=== PATIENT | female | born 1980 | race Caucasian/White ===

== ENCOUNTER → 2016-11-28 | Outpatient (CLI) | payer OTHER | LOC: BMCIMAGING 12:21 | PROVIDERS: ATTEND Podiatrist Foot & Ankle Surgery | DX: S92.331D Displaced fracture of third metatarsal bone, right foot, subsequent encounter for fracture with routine healing (principal); S92.351D Displaced fracture of fifth metatarsal bone, right foot, subsequent encounter for fracture with routine healing ==

== ENCOUNTER → 2016-12-21 | Outpatient (CLI) | payer OTHER | LOC: BMCIMAGING 12:21 | PROVIDERS: ATTEND Podiatrist Foot & Ankle Surgery | DX: S92.331D Displaced fracture of third metatarsal bone, right foot, subsequent encounter for fracture with routine healing (principal); S92.351D Displaced fracture of fifth metatarsal bone, right foot, subsequent encounter for fracture with routine healing ==

== ENCOUNTER 2016-12-29 05:15 | Emergency (ER) | payer OTHER ==
[2016-12-29 05:25] VITALS: RESP 18; TEMP 97.5
--- NOTE | 2016-12-29 05:33 | EDPHY ---
H & P Time Seen by Provider: 12/29/16 05:32 HPI/ROS: CC: "I am having severe cramping and a pulsating sensation in my pelvis." HPI: This 36-year-old female with no significant past medical history presents to the emergency department today complaining of a severe cramping and a pulsating sensation on the right side of her pelvis. She states it feels like it is her ovary and is radiating to her right upper quadrant and the suprapubic area. She had the pain 2 days ago in the afternoon and it was worse than it is tonight. She rated it at 8/10. It lasted about 5 hours and went away spontaneously. The pain came back last night at about 8:00 p.m. and calmed down enough that she was able to fall asleep at about 1:00 a.m. after taking ibuprofen. Then the pain woke her up. She rates it a 6/10 currently. The pain is worse when she draws her knees to her chest as in the position. It feels better when she stands up or lies flat on her back. She had no increase in the pain on the ride over to the ED. When she urinates she states it "feels heavy ". The pain also increased when she had a bowel movement. There has been no blood in her urine or her stool. She denies fever, chills, nausea, or vomiting. She has had no constipation or diarrhea. She has had a few prior episodes but Midol took the discomfort away. She has an IUD and is sexually active with her . She has been having an intermittent period over the last few days. She denies vaginal discharge. She had a physical exam about one and half months ago including a pelvic exam and everything was fine per her recollection. She has no history of sexually transmitted infections. She is by 6 years ago. REVIEW OF SYSTEMS: Constitutional: No fever, no chills. Eyes: No discharge. ENT: Recent sore throat/URI - resolved. Respiratory: No cough, no shortness of breath. Cardiac: No chest pain, no palpitations. Gastrointestinal: See HPI. Genitourinary: No hematuria. Musculoskeletal: No back pain. Skin: No rashes. Neurological: No headache. Past Medical/Surgical History: PMH: Denied. (Kidney stone but was taking a lot of supplements preparing for a marathon) PSH: FH: Father . Parkinson's. ETOH abuse; Mother alive at age 65 and in good health. NKDA MEDS: An occasional ibuprofen, Midol. Social History: She denies use of tobacco products; alcohol products once a week; no marijuana or drug use. She is and has a 6-year-old son. Smoking Status: Never smoked Physical Exam: General Appearance: Alert, moderate distress. Eyes: Pupils equal and round no pallor or injection. ENT, Mouth: Mucous membranes are moist. No pharyngeal erythema or exudates. Uvula midline. Respiratory: There are no retractions, lungs are clear to auscultation. Cardiovascular: Regular rate and rhythm. No murmurs, gallops or rubs. Back: No CVA tenderness to percussion. Gastrointestinal: Abdomen is soft, nondistended. Positive tenderness to palpation right lower quadrant (slightly lower than where appendix would be expected) and suprapubic area. No rebound, guarding or rigidity. Normal bowel sounds. Pelvic: deferred for now; (recent pelvic exam 1.5 months ago). Neurological: Awake and alert, sensory and motor exams grossly normal. Skin: Warm and dry, no rashes. Musculoskeletal: Neck is supple nontender. Extremities are symmetrical, full range of motion. No calf swelling or tenderness. Psychiatric: Patient is oriented X 3, there is no agitation. DIFFERENTIAL DIAGNOSIS: After history and physical exam differential diagnosis was considered for but not limited to: appendicitis, ovarian cyst, ovarian torsion, tubo-ovarian abscess, colitis, mesenteric adenitis Constitutional: Initial Vital Signs Temperature (C) 97.5 F 12/29/16 05:22 Heart Rate 79 12/29/16 05:22 Respiratory Rate 18 12/29/16 05:22 Blood Pressure 120/74 12/29/16 05:22 O2 Sat (%) 97 12/29/16 05:22 O2 Delivery Mode Room Air Allergies/Adverse Reactions: No Known Allergies Allergy (Verified 01/01/13 19:48) Home Medications: Medication Instructions Recorded NO HOME MEDS 01/01/13 Medical Decision Making Procedures: Pelvic exam: The vulva was normal no lesions. The vagina had a small amount of dark blood.. The cervix was closed with minimal active bleeding and no purulent drainage. IUD string apparent extruding from the cervical os. The uterus was normal size and nontender. The adnexa had no palpable masses but was tender to palpation. The exam was performed with a lead applier (Mendy). ED Course/Re-evaluation: The patient was seen and examined. Vital signs were reviewed and normal. After initially declining pain medication, the patient accepted Toradol 15 mg IV push. She may have evidence of slight dehydration by labs but declined IV fluids for now. A complete blood count was completely within normal limits. Her chemistry panel had a minimally low bicarb and a slightly elevated total bilirubin with normal transaminases. Her urinalysis revealed 2+ ketones and slight blood but she has been having her menstrual period. She is not . She had declined a pelvic exam initially but when we discussed if they saw the IUD string on her pelvic exam she did not remember and then questioned whether she actually had a pelvic exam. The patient will be kept NPO and is awaiting a pelvic ultrasound. Her care will be turned over to Dr. Jean-Pierre Franco for further evaluation and disposition. - Data Points Laboratory Results: Laboratory Results 12/29/16 05:28 12/29/16 05:28 12/29/16 12/29/16 12/29/16 05:30 05:28 05:28 WBC RBC Hgb Hct MCV MCH MCHC RDW Plt Count MPV Neut % (Auto) Lymph % (Auto) Early % (Auto) Eos % (Auto) Baso % (Auto) Nucleat RBC Rel Count Absolute Neuts (auto) Absolute Lymphs (auto) Absolute Monos (auto) Absolute Eos (auto) Absolute Basos (auto) Absolute Nucleated RBC Immature Gran % Immature Gran # Sodium 140 mEq/L mEq/L (134-144) Potassium 4.6 mEq/L mEq/L (3.5-5.2) Chloride 105 mEq/L mEq/L (97-110) Carbon Dioxide 21 mEq/l L mEq/l (22-31) Anion Gap 14 mEq/L mEq/L (8-16) BUN 22 mg/dL mg/dL (7-23) Creatinine 0.8 mg/dL mg/dL (0.6-1.0) Estimated GFR > 60 Glucose 68 mg/dL L mg/dL (70-100) Calcium 9.4 mg/dL mg/dL (8.5-10.4) Total Bilirubin 1.6 mg/dL H mg/dL (0.1-1.4) Conjugated Bilirubin 0.5 mg/dL mg/dL (0.0-0.5) Unconjugated Bilirubin 1.1 mg/dL mg/dL (0.0-1.1) AST 25 IU/L IU/L (14-46) ALT 31 IU/L IU/L (9-52) Alkaline Phosphatase 60 IU/L IU/L (38-126) Total Protein 7.0 g/dL g/dL (6.3-8.2) Albumin 4.4 g/dL g/dL (3.5-5.0) Beta HCG, Qual NEGATIVE Urine Color YELLOW Urine Appearance CLEAR Urine pH 5.5 (5.0-7.5) Ur Specific [place] >= 1.030 (1.002-1.030) Urine Protein NEGATIVE (NEGATIVE) Urine Ketones 1+ H (NEGATIVE) Urine Blood 2+ H (NEGATIVE) Urine Nitrate NEGATIVE (NEGATIVE) Urine Bilirubin NEGATIVE (NEGATIVE) Urine Urobilinogen 0.2 EU EU (0.2-1.0) Ur Leukocyte Esterase NEGATIVE (NEGATIVE) Urine RBC 0-1 /hpf /hpf (0-3) Urine WBC 0-1 /hpf /hpf (0-3) Ur Epithelial Cells 1+ /lpf /lpf (NONE-1+) Hyaline Casts 1-3 /lpf H /lpf (0-1) Urine Mucus 3+ /lpf H /lpf (NONE-1+) Urine Glucose NEGATIVE (NEGATIVE) 12/29/16 05:28 WBC 6.51 10^3/uL 10^3/uL (3.80-9.50) RBC 4.74 10^6/uL 10^6/uL (4.18-5.33) Hgb 14.9 g/dL g/dL (12.6-16.3) Hct 42.9 % % (38.0-47.0) MCV 90.5 fL fL (81.5-99.8) MCH 31.4 pg pg (27.9-34.1) MCHC 34.7 g/dL g/dL (32.4-36.7) RDW 12.0 % % (11.5-15.2) Plt Count 240 10^3/uL 10^3/uL (150-400) MPV 9.6 fL fL (8.7-11.7) Neut % (Auto) 50.1 % % (39.3-74.2) Lymph % (Auto) 39.5 % % (15.0-45.0) Early % (Auto) 6.3 % % (4.5-13.0) Eos % (Auto) 3.1 % % (0.6-7.6) Baso % (Auto) 0.8 % % (0.3-1.7) Nucleat RBC Rel Count 0.0 % % (0.0-0.2) Absolute Neuts (auto) 3.27 10^3/uL 10^3/uL (1.70-6.50) Absolute Lymphs (auto) 2.57 10^3/uL 10^3/uL (1.00-3.00) Absolute Monos (auto) 0.41 10^3/uL 10^3/uL (0.30-0.80) Absolute Eos (auto) 0.20 10^3/uL 10^3/uL (0.03-0.40) Absolute Basos (auto) 0.05 10^3/uL 10^3/uL (0.02-0.10) Absolute Nucleated RBC 0.00 10^3/uL 10^3/uL (0-0.01) Immature Gran % 0.2 % % (0.0-1.1) Immature Gran # 0.01 10^3/uL 10^3/uL (0.00-0.10) Sodium Potassium Chloride Carbon Dioxide Anion Gap BUN Creatinine Estimated GFR Glucose Calcium Total Bilirubin Conjugated Bilirubin Unconjugated Bilirubin AST ALT Alkaline Phosphatase Total Protein Albumin Beta HCG, Qual Urine Color Urine Appearance Urine pH Ur Specific [place] Urine Protein Urine Ketones Urine Blood Urine Nitrate Urine Bilirubin Urine Urobilinogen Ur Leukocyte Esterase Urine RBC Urine WBC Ur Epithelial Cells Hyaline Casts Urine Mucus Urine Glucose Medications Given: Discontinued Medications Ketorolac Tromethamine (Toradol) 15 mg IVP EDNOW ONE Stop: 12/29/16 06:09 Last Admin: 12/29/16 06:14 Dose: 15 mg Departure - Departure Clinical Impression: RLQ abdominal pain Referrals: Emma Cedeno PA [Physician Motor Equipment Sergeant] - As per Instructions
[2016-12-29 05:41] LABS: % IMMATURE GRANULYOCYTES 0.2 % (0.0-1.1); ABSOLUTE IMMATURE GRANULOCYTES 0.01 10^3/uL (0.00-0.10); ADD DIFF? NO; ADD MORPH? NO; ADD SCAN? NO; ATYPICAL LYMPHOCYTE FLAG 0 (0-99); FRAGMENT RBC FLAG 0 (0-99); HEMATOCRIT 42.9 % (38.0-47.0); HEMOGLOBIN 14.9 g/dL (12.6-16.3); LEFT SHIFT FLG 0 (0-99); LIPEMIA HEMOLYSIS FLAG 90 (0-99); MEAN CELL HEMOGLOBIN 31.4 pg (27.9-34.1); MEAN CELL HEMOGLOBIN CONCENTR. 34.7 g/dL (32.4-36.7); MEAN CELL VOLUME 90.5 fL (81.5-99.8); MEAN PLATELET VOLUME 9.6 fL (8.7-11.7); PLATELET CLUMPS FLAG 0 (0-99); PLATELET COUNT 240 10^3/uL (150-400); RED BLOOD CELL COUNT 4.74 10^6/uL (4.18-5.33)
[2016-12-29 05:43] LABS: COLOR YELLOW; LEUKOCYTE ESTERASE,URINE NEGATIVE (NEGATIVE); NITRITE,URINE NEGATIVE (NEGATIVE); PH,URINE 5.5 (5.0-7.5)
[2016-12-29 05:56] LABS: ALANINE AMINOTRANSFERASE 31 IU/L (9-52); ALBUMIN 4.4 g/dL (3.5-5.0); ALKALINE PHOSPHATASE 60 IU/L (38-126); ANION GAP 14 mEq/L (8-16); ASPARTATE AMINOTRANSFERASE 25 IU/L (14-46); BILIRUBIN,TOTAL 1.6 mg/dL (0.1-1.4); BILIRUBIN-CONJUGATED 0.5 mg/dL (0.0-0.5); BILIRUBIN-UNCONJUGATED 1.1 mg/dL (0.0-1.1); CALCIUM 9.4 mg/dL (8.5-10.4); CARBON DIOXIDE 21 mEq/l (22-31); CHLORIDE 105 mEq/L (97-110); CREATININE 0.8 mg/dL (0.6-1.0); GLOMERULAR FILTRATION RATE > 60; GLUCOSE 68 mg/dL (70-100); POTASSIUM 4.6 mEq/L (3.5-5.2); SODIUM 140 mEq/L (134-144)
[2016-12-29 05:57] LABS: MUCUS 3+ /lpf (NONE-1+)
[2016-12-29 05:59] LABS: RBC,URINE 0-1 /hpf (0-3); WBC,URINE 0-1 /hpf (0-3)
[2016-12-29] MEDS ORDERED: KETOROLAC 15 MG/1 ML SDV IVP ONE (06:08)
[2016-12-29 08:26] VITALS: PULSE 71
[2016-12-29] MEDS ORDERED: ONDANSETRON 4 MG/2 ML VIAL IVP ONE (08:26)
[2016-12-29] MEDS ORDERED: IOPAMIDOL (ISOVUE-300) 100 ML BTL ONE (08:41)
[2016-12-29 09:16] VITALS: BP 96/64; O2SAT 94
== END 2016-12-29 09:18 | disposition home or self-care (01) ==
LOC: CED 05:15
DX: R10.31 Right lower quadrant pain (principal)
CPT/HCPCS: 74177-PO; 76856-PO; 80048-PO; 80076-PO; 81003-PO; 81015-PO; 84703-PO; 85025-PO; 96374; J1885; J2405; Q9967

== ENCOUNTER 2016-12-29 19:52 | Emergency (ER) | payer OTHER ==
[2016-12-29 20:25] VITALS: O2SAT 96
[2016-12-29] MEDS ORDERED: NS 1,000 ML IV ONE (20:29)
[2016-12-29] MEDS ORDERED: METOCLOPRAMIDE 10 MG/2 ML VIAL IVP ONE (20:30)
[2016-12-29] MEDS ORDERED: HYOSCYAMINE SULFATE 0.125 MG TAB PO ONE (21:15)
[2016-12-29] MEDS ORDERED: KETOROLAC 15 MG/1 ML SDV IVP ONE (21:15)
[2016-12-29] MEDS ORDERED: PROMETHAZINE 25MG SUPP PREPK#4 BTL TAKEHOME ONE (22:30)
[2016-12-29] MEDS ORDERED: PROMETHAZINE 25 MG PREPACK #4 BTL TAKEHOME ONE (22:30)
--- NOTE | 2016-12-29 22:32 | EDPHY ---
H & P Time Seen by Provider: 12/29/16 20:29 HPI/ROS: This patient was evaluated early this morning with workup included a pelvic ultrasound and abdominal CT with IV contrast with findings of a small amount of free fluid likely from ruptured ovarian cyst. She was sent home with hydrocodone for analgesia and Zofran and reported vomiting 16 times today with inability to tolerate p.o. intake. She reports associated moderate lower belly pain and ongoing nausea. She started feeling slightly lightheaded this evening and came back for further treatment. She reports no improvement in her nausea vomiting with sublingual Zofran. Her test was negative this morning. ROS: No high fevers or chills. No other constitutional symptoms HEENT: No complaints Pulmonary: No shortness of breath. No cough. Cardiovascular: No chest pain. GI: No hematemesis. No diarrhea. : No urinary symptoms 10 point ROS is otherwise negative. Smoking Status: Never smoked Physical Exam: General Appearance: Alert, no distress. Eyes: Pupils equal and round no pallor or injection. ENT, Mouth: Mucous membranes moist. Respiratory: There are no retractions, lungs are clear to auscultation. Cardiovascular: Regular rate and rhythm. Gastrointestinal: Normoactive to hyperactive bowel sounds, soft, minimal lower belly tenderness right slightly more than left with no guarding or rebound. Back: No CVA tenderness. Neurological: GCS 15. Skin: Warm and dry, no rashes. Musculoskeletal: Neck is supple nontender. Extremities are symmetrical, full range of motion. Psychiatric: Mood and affect normal. DIFFERENTIAL DIAGNOSIS: After history and physical exam differential diagnosis was considered for vomiting, dehydration, ruptured ovarian cyst, doubt appendicitis, Constitutional: Initial Vital Signs Temperature (C) 36.4 C 12/29/16 20:22 Heart Rate 88 12/29/16 20:22 Respiratory Rate 20 12/29/16 20:22 Blood Pressure 118/74 12/29/16 20:22 O2 Sat (%) 96 12/29/16 20:22 O2 Delivery Mode Room Air Allergies/Adverse Reactions: No Known Allergies Allergy (Verified 12/29/16 20:32) Home Medications: Medication Instructions Recorded HYDROCODONE BIT/ACETAMINOPHEN 12/29/16 Zofran 12/29/16 MDM/Departure - MDM Diagnostics: IV 1 L normal saline bolus CBC is normal. test from this morning was normal. Urinalysis this morning negative. Electrolytes reveal a low bicarb the think is secondary to her vomiting and dehydration. Course: IV Reglan and Benadryl with resolution of nausea vomiting. She then tolerated a full bottle of Gatorade without emesis. Toradol 15 mg IV with relief of pain Patient ambulated without lightheadedness after treatment and reports feeling significantly improved. His suspect she had significant vomiting in part due to morphine she had for analgesia this morning. Her main problem tonight was dehydration improved with treatment. She has a benign belly exam tonight other than mild lower belly tenderness. I do not think she has acute appendicitis given current findings. Medications Given: Discontinued Medications Diphenhydramine HCl (Benadryl Injection) 25 mg IVP EDNOW ONE Stop: 12/29/16 20:31 Last Admin: 12/29/16 20:54 Dose: 25 mg Hyoscyamine Sulfate (Levsin, Hyomax-Sl) 0.125 mg PO EDNOW ONE Stop: 12/29/16 21:16 Last Admin: 12/29/16 21:31 Dose: 0.125 mg Sodium Chloride (Ns) 1,000 mls @ 0 mls/hr IV EDNOW ONE; Wide Open PRN Reason: Protocol Stop: 12/29/16 20:30 Last Admin: 12/29/16 20:54 Dose: 1,000 mls Ketorolac Tromethamine (Toradol) 15 mg IVP EDNOW ONE Stop: 12/29/16 21:16 Last Admin: 12/29/16 21:31 Dose: 15 mg Metoclopramide HCl (Reglan Injection) 10 mg IVP EDNOW ONE Stop: 12/29/16 20:31 Last Admin: 12/29/16 20:54 Dose: 10 mg Promethazine HCl (Phenergan 25 Mg Prepack #4) 1 btl TAKEHOME EDNOW ONE Stop: 12/29/16 22:31 Last Admin: 12/29/16 23:28 Dose: 1 btl Promethazine HCl (Phenergan 25mg Supp Prepack#4) 1 btl TAKEHOME EDNOW ONE Stop: 12/29/16 22:31 Last Admin: 12/29/16 23:27 Dose: 1 btl - Depart Disposition: Home, Routine, Self-Care Clinical Impression: Dehydration Abdominal pain Qualifiers: Abdominal location: lower abdomen, unspecified Qualified Code(s): R10.30 - Lower abdominal pain, unspecified Vomiting Qualifiers: Vomiting type: unspecified Vomiting Intractability: non-intractable Nausea presence: with nausea Qualified Code(s): R11.2 - Nausea with vomiting, unspecified Condition: Good Instructions: Promethazine (Into the rectum), Acute Nausea and Vomiting (ED), Acute Abdominal Pain (ED) Additional Instructions: Diagnoses: 1. Vomiting 2. Dehydration 3. Lower abdominal pain Plan: Drink plenty fluids Light diet Ibuprofen and Tylenol as needed for pain Phenergan suppository or pill-1/6 hours if needed for nausea vomiting No driving, alcohol or come Phenergan Follow up with your OBGYN physician for a recheck this week. Return emergency department for any significant worsening despite treatment plan. Referrals: NONE *PRIMARY CARE P,. [Primary Care Provider] - As per Instructions Leah Guerra MD [Medical Doctor] - As per Instructions
[2016-12-29 22:47] LABS: % IMMATURE GRANULYOCYTES 0.3 % (0.0-1.1); ABSOLUTE IMMATURE GRANULOCYTES 0.02 10^3/uL (0.00-0.10); ADD DIFF? NO; ADD MORPH? NO; ADD SCAN? NO; ATYPICAL LYMPHOCYTE FLAG 0 (0-99); FRAGMENT RBC FLAG 0 (0-99); HEMATOCRIT 40.1 % (38.0-47.0); HEMOGLOBIN 13.9 g/dL (12.6-16.3); LEFT SHIFT FLG 0 (0-99); LIPEMIA HEMOLYSIS FLAG 90 (0-99); MEAN CELL HEMOGLOBIN 31.2 pg (27.9-34.1); MEAN CELL HEMOGLOBIN CONCENTR. 34.7 g/dL (32.4-36.7); MEAN CELL VOLUME 90.1 fL (81.5-99.8); MEAN PLATELET VOLUME 9.4 fL (8.7-11.7); PLATELET CLUMPS FLAG 10 (0-99); PLATELET COUNT 247 10^3/uL (150-400); RED BLOOD CELL COUNT 4.45 10^6/uL (4.18-5.33); RED CELL DISTRIBUTION WIDTH 11.9 % (11.5-15.2)
[2016-12-29 22:57] LABS: ANION GAP 16 mEq/L (8-16); CALCIUM 8.4 mg/dL (8.5-10.4); CARBON DIOXIDE 15 mEq/l (22-31); CHLORIDE 107 mEq/L (97-110); CREATININE 0.8 mg/dL (0.6-1.0); GLOMERULAR FILTRATION RATE > 60; GLUCOSE 76 mg/dL (70-100); POTASSIUM 4.6 mEq/L (3.5-5.2); SODIUM 138 mEq/L (134-144)
[2016-12-29 23:15] VITALS: BP 130/61; PULSE 83; RESP 16; TEMP 98.6
== END 2016-12-29 23:34 | disposition home or self-care (01) ==
LOC: CED 19:52
DX: E86.0 Dehydration (principal); R10.30 Lower abdominal pain, unspecified; E86.9 Volume depletion, unspecified
CPT/HCPCS: 80048-PO; 85025-PO; 96374; J1200; J1885; J2765

== ENCOUNTER 2016-12-30 14:10 | Observation (INO) | payer OTHER ==
[2016-12-30] MEDS ORDERED: NS 1,000 ML IV ONE (14:42)
[2016-12-30 14:46] LABS: % IMMATURE GRANULYOCYTES 0.3 % (0.0-1.1); ABSOLUTE IMMATURE GRANULOCYTES 0.04 10^3/uL (0.00-0.10); ADD DIFF? NO; ADD MORPH? NO; ADD SCAN? NO; ATYPICAL LYMPHOCYTE FLAG 0 (0-99); FRAGMENT RBC FLAG 0 (0-99); HEMATOCRIT 42.9 % (38.0-47.0); HEMOGLOBIN 15.1 g/dL (12.6-16.3); LEFT SHIFT FLG 0 (0-99); LIPEMIA HEMOLYSIS FLAG 90 (0-99); MEAN CELL HEMOGLOBIN 31.5 pg (27.9-34.1); MEAN CELL HEMOGLOBIN CONCENTR. 35.2 g/dL (32.4-36.7); MEAN CELL VOLUME 89.6 fL (81.5-99.8); MEAN PLATELET VOLUME 9.3 fL (8.7-11.7); PLATELET CLUMPS FLAG 10 (0-99); PLATELET COUNT 249 10^3/uL (150-400); RED BLOOD CELL COUNT 4.79 10^6/uL (4.18-5.33)
[2016-12-30 14:54] LABS: ALANINE AMINOTRANSFERASE 33 IU/L (9-52); ALBUMIN 4.7 g/dL (3.5-5.0); ALKALINE PHOSPHATASE 63 IU/L (38-126); ANION GAP 18 mEq/L (8-16); ASPARTATE AMINOTRANSFERASE 26 IU/L (14-46); BILIRUBIN,TOTAL 2.2 mg/dL (0.1-1.4); BILIRUBIN-CONJUGATED 0.4 mg/dL (0.0-0.5); BILIRUBIN-UNCONJUGATED 1.8 mg/dL (0.0-1.1); CALCIUM 9.7 mg/dL (8.5-10.4); CARBON DIOXIDE 17 mEq/l (22-31); CHLORIDE 103 mEq/L (97-110); CREATININE 0.8 mg/dL (0.6-1.0); GLOMERULAR FILTRATION RATE > 60; GLUCOSE 104 mg/dL (70-100); POTASSIUM 4.5 mEq/L (3.5-5.2); SODIUM 138 mEq/L (134-144); TOTAL PROTEIN 7.5 g/dL (6.3-8.2)
--- NOTE | 2016-12-30 15:01 | EDPHY ---
H & P Stated Complaint: abd pain, vomiting x 3 days. 3rd ED visit for same. Time Seen by Provider: 12/30/16 14:48 HPI/ROS: CHIEF COMPLAINT: Abdominal pain, Nausea HISTORY OF PRESENT ILLNESS: The patient is a 36-year-old female, who returns today with continued suprapubic pain. The patient has been evaluated twice over the past 24 hours for the same complaint. She had a pelvic ultrasound and abdominal CT with findings of a small amount of free fluid likely from ruptured ovarian cyst. She was sent home with hydrocodone for analgesia and Zofran and reported vomiting 16 times. She returned to the ED and received IV Reglan and Benadryl with resolution of nausea and vomiting. The patient presents today with continued suprapubic pain. She states her pain is a 7/10 and worse with spasms. She reports pain in the right lower quadrant as well as the right epigastric region. She tried to take Promethazine pill, but vomited it up. She then tried it as a suppository, but found no relief. The patient continues to feel nauseous. She denies fever and diarrhea. Her last bowel movement was this morning. REVIEW OF SYSTEMS: A 10 point review of systems was performed and is negative with the exception of the elements mentioned in the history of present illness. Past Medical History: . Past Surgical History: section. Past Family History: Noncontributory Social History: Nonsmoker. No alcohol use. General Appearance: Alert, no acute distress. * Eyes: Pupils equal and round, no conjunctival injection, no discharge. ENT, Mouth: Mucous membranes are moist, no oropharyngeal erythema or edema. Neck: No lymphadenopathy, supple. Respiratory: Lungs are clear to auscultation; no wheezes, rales, or rhonchi. Cardiovascular: Regular rate and rhythm; no murmur, rub, or gallop. Gastrointestinal: Abdomen is soft, midline suprapubic tenderness, no masses or organomegaly, bowel sounds are diminished. Skin: Warm and dry, no rashes, normal color. Back: Nontender to palpation over the thoracolumbar spine. Extremities: No lower extremity edema, no calf tenderness or swelling. Neurological: Alert and oriented. Moving all four extremities easily and equally. Psychiatric: Normal affect. Source: Patient Exam Limitations: No limitations - Personal History LMP (Females 10-55): Now Current Tetanus/Diphtheria Vaccine: Yes Current Tetanus Diphtheria and Acellular Pertussis (TDAP): Yes - Medical/Surgical History Hx Asthma: No Hx Chronic Respiratory Disease: No Hx Diabetes: No Hx Cardiac Disease: No Hx Renal Disease: No Hx Cirrhosis: No Hx Alcoholism: No Hx HIV/AIDS: No Hx Splenectomy or Spleen Trauma: No Other PMH: ruptured ovarian cyst - Social History Smoking Status: Never smoked Constitutional: Initial Vital Signs Temperature (C) 36.8 C 12/30/16 14:16 Heart Rate 100 12/30/16 14:16 Respiratory Rate 16 12/30/16 14:16 Blood Pressure 111/68 12/30/16 14:16 O2 Sat (%) 97 12/30/16 14:16 O2 Delivery Mode Room Air Allergies/Adverse Reactions: morphine Allergy (Verified 12/30/16 14:15) Home Medications: Medication Instructions Recorded NK [No Known Home Meds] 12/30/16 Medical Decision Making - Diagnostics Imaging Results: Imaging Impressions Abdomen Ultrasound 12/30/16 15:32 Impression: Diffuse decreased echogenicity of the liver, which is nonspecific but can be seen with hepatitis. Otherwise, unremarkable right upper quadrant ultrasound. Results called and discussed with Brittanie Hernandez M.D., on December 30, 2016 at 1646. Imaging: Discussed imaging studies w/ manager call center Radiologist ED Course/Re-evaluation: The patient is a healthy female here for her third time with vomiting and abdominal pain. She was evaluated here twice with the same pain with associated nausea and vomiting. She had a pelvic US and abdominal CT that found free fluid in the pelvis suggestive of ruptured ovarian cyst. The patient continues to have severe suprapubic pain. On examination she has decreased bowel sounds and midline suprapubic tenderness. I do not suspect appendicitis at this time. I ordered an abdominal ultrasound to look at the gallbladder and a urinalysis. IV was established, the patient received 0.5mg Dilaudid and 12.5mg Phenergan. She is receiving IV fluids. The patient has an elevated WBC today. She also has a slightly elevated bilirubin. Her ultrasound today is negative. I discussed these findings with the patient. On repeat abdominal exam the patient has mild tenderness in the periumbilical region. The patient does not wish to go home, she fears her symptoms would be unmanageable at home. 5:00 p.m.: I spoke to Dr. Duque, hospitalist, she accepts the patient for admission. - Data Points Laboratory Results: Laboratory Results 12/30/16 14:30 12/30/16 14:30 12/30/16 12/30/16 12/30/16 14:30 14:30 14:30 WBC 11.57 10^3/uL H 10^3/uL (3.80-9.50) RBC 4.79 10^6/uL 10^6/uL (4.18-5.33) Hgb 15.1 g/dL g/dL (12.6-16.3) Hct 42.9 % % (38.0-47.0) MCV 89.6 fL fL (81.5-99.8) MCH 31.5 pg pg (27.9-34.1) MCHC 35.2 g/dL g/dL (32.4-36.7) RDW 12.0 % % (11.5-15.2) Plt Count 249 10^3/uL 10^3/uL (150-400) MPV 9.3 fL fL (8.7-11.7) Neut % (Auto) 85.9 % H % (39.3-74.2) Lymph % (Auto) 9.6 % L % (15.0-45.0) [place] % (Auto) 4.0 % L % (4.5-13.0) Eos % (Auto) 0.0 % L % (0.6-7.6) Baso % (Auto) 0.2 % L % (0.3-1.7) Nucleat RBC Rel Count 0.0 % % (0.0-0.2) Absolute Neuts (auto) 9.94 10^3/uL H 10^3/uL (1.70-6.50) Absolute Lymphs (auto) 1.11 10^3/uL 10^3/uL (1.00-3.00) Absolute Monos (auto) 0.46 10^3/uL 10^3/uL (0.30-0.80) Absolute Eos (auto) 0.00 10^3/uL L 10^3/uL (0.03-0.40) Absolute Basos (auto) 0.02 10^3/uL 10^3/uL (0.02-0.10) Absolute Nucleated RBC 0.00 10^3/uL 10^3/uL (0-0.01) Immature Gran % 0.3 % % (0.0-1.1) Immature Gran # 0.04 10^3/uL 10^3/uL (0.00-0.10) Sodium 138 mEq/L mEq/L (134-144) Potassium 4.5 mEq/L mEq/L (3.5-5.2) Chloride 103 mEq/L mEq/L (97-110) Carbon Dioxide 17 mEq/l L mEq/l (22-31) Anion Gap 18 mEq/L H mEq/L (8-16) BUN 17 mg/dL mg/dL (7-23) Creatinine 0.8 mg/dL mg/dL (0.6-1.0) Estimated GFR > 60 Glucose 104 mg/dL H mg/dL (70-100) Calcium 9.7 mg/dL D mg/dL (8.5-10.4) Total Bilirubin 2.2 mg/dL H mg/dL (0.1-1.4) Conjugated Bilirubin 0.4 mg/dL mg/dL (0.0-0.5) Unconjugated Bilirubin 1.8 mg/dL H mg/dL (0.0-1.1) AST 26 IU/L IU/L (14-46) ALT 33 IU/L IU/L (9-52) Alkaline Phosphatase 63 IU/L IU/L (38-126) Total Protein 7.5 g/dL g/dL (6.3-8.2) Albumin 4.7 g/dL g/dL (3.5-5.0) Lipase 132 IU/L IU/L (23-300) Beta HCG, Qual NEGATIVE Medications Given: Discontinued Medications Hydromorphone HCl (Dilaudid) 0.5 mg IVP EDNOW ONE Stop: 12/30/16 15:16 Last Admin: 12/30/16 15:33 Dose: 0.5 mg Sodium Chloride (Ns) 1,000 mls @ 0 mls/hr IV ONCE ONE; Wide Open PRN Reason: Protocol Stop: 12/30/16 14:43 Last Admin: 12/30/16 14:49 Dose: 1,000 mls Promethazine HCl (Phenergan) 12.5 mg IVP EDNOW ONE Stop: 12/30/16 15:16 Last Admin: 12/30/16 15:32 Dose: 12.5 mg Departure - Departure Disposition: [facility] Inpatient Acute Clinical Impression: Vomiting Qualifiers: Vomiting type: unspecified Vomiting Intractability: intractable Nausea presence : with nausea Qualified Code(s): R11.2 - Nausea with vomiting, unspecified Abdominal pain Qualifiers: Abdominal location: generalized Qualified Code(s): R10.84 - Generalized abdominal pain Condition: Fair Report Scribed for: Brittanie Hernandez Report Scribed by: Luisa Garvey Date of Report: 12/30/16 Time of Report: 15:01 Physician Review and Approval Statement: 12/30/16 15:01 Portions of this note were transcribed by the medical anthropologist. I, Dr. Brittanie Hernandez, personally performed the history, physical exam, and medical decision- making; and confirmed the accuracy of the information in the transcribed note.
[2016-12-30] MEDS ORDERED: PROMETHAZINE HCL 25 MG/ML INJ IVP ONE (15:15)
[2016-12-30] MEDS ORDERED: HYDROmorphONE/DILAUDID 1 MG/ML INJ IVP ONE (15:15)
[2016-12-30] MEDS ORDERED: oxyCODONE IR 5 MG TAB PO PRN (18:34)
[2016-12-30] MEDS ORDERED: HYDROmorphONE/DILAUDID 1 MG/ML INJ IVP PRN (18:34)
[2016-12-30] MEDS ORDERED: ONDANSETRON 4 MG/2 ML VIAL IVP PRN (18:34)
[2016-12-30] MEDS ORDERED: PROMETHAZINE HCL 25 MG/ML INJ IVP PRN (18:34)
[2016-12-30] MEDS ORDERED: ACETAMINOPHEN 325 MG TAB PO PRN (18:34)
--- NOTE | 2016-12-30 19:16 | GHP ---
[f rep st] HISTORY AND PHYSICAL DATE OF ADMISSION: 12/30/2016 CHIEF COMPLAINT: Abdominal pain. HISTORY OF PRESENT ILLNESS: The patient is a 36-year-old female, who initially started with severe s uprapubic pain 2 nights ago. She came to the ER and was found to have some free fluid in her abdomen , was diagnosed with a ruptured ovarian cyst, and discharged home with hydrocodone and Zofran and sup portive care. She has gone home and has had persistent profuse vomiting, unable to keep anything marianne n, has now come back to the ER 2 times due to uncontrolled symptoms, and is now being admitted to [facility]. Today, the pain did move upwards a little bit to her epigastric region. She has known rig ht lower quadrant pain that comes on monthly with her cycle, and there was some concern by her gyneco logist that she could have endometriosis and they placed an IUD. PAST MEDICAL HISTORY: Possible endometriosis. PAST SURGICAL HISTORY: . MEDICATIONS: Please see computer record for full detailed list. ALLERGIES: Morphine. SOCIAL HISTORY: No smoking. Occasional alcohol. She lives with her and child. REVIEW OF SYSTEMS: A complete review of systems obtained. Review of systems negative regarding cons titutional, HEENT, GI, pulmonary, cardiovascular, , hematology, skin, muscular, endocrine, psych, e xcept for positives and negatives as noted in HPI. FAMILY HISTORY: Reviewed and noncontributory to presenting complaint. PHYSICAL EXAMINATION: GENERAL: Well-developed, well-nourished female, in no distress. VITAL SIGNS: Temperature is 370, pulse 69, blood pressure 90/56, saturating 95% on room air. EYES: Normal conj unctivae. Pupils equal, react to light. ENT: Normal ears and nose. Hearing intact. Normal teeth. Oropharynx moist. NECK: Trachea midline. No thyromegaly. CHEST: Normal respiratory effort. RAMSES NGS: Clear to auscultation bilaterally. CARDIOVASCULAR: Regular rate and rhythm. No murmur. No l ower extremity edema. ABDOMEN: Soft. Positive tenderness to palpation without rebound or guarding, in the suprapubic area the worst. No hepatosplenomegaly. SKIN: Warm and dry without rash. MUSCUL OSKELETAL: No cyanosis or clubbing. Strength is 5/5 upper and lower extremities. NEUROLOGIC: Cran ial nerves intact. Normal sensation to light touch. PSYCHIATRIC: Alert and oriented x3. Normal af fect. Normal judgment and insight. Normal memory. LABORATORY DATA: White count 11.56, hematocrit 42.9, platelets 249. Sodium 138, potassium 4.5, chlo ride 103, bicarb 17, BUN 17, creatinine 0.8, glucose 104, total bilirubin is 1.2, unconjugated biliru bin 1.8. LFTs are otherwise negative. Lipase is negative. Beta HCG is negative. Abdominal ultraso und shows a question of hepatitis, but gallbladder okay. ASSESSMENT/PLAN: 1. Suprapubic pain. She was previously found to have free fluid in her abdomen concerning for a rup tured ovarian cyst versus endometriosis. I spoke with Dr. Guerra, of [facility] [facility] [employer] [facility], and she will see her in co nsultation. The appendix is not visualized on her CAT scan well, but per Radiology if it were inflam ed, they would at least see some enlargement, which is not currently present. We will continue to fo llow her abdominal exam serially. 2. Nausea and vomiting. She will be treated supportively with p.r.n. Zofran and Phenergan. 3. Increased liver function tests and question hepatitis by ultrasound. Her liver function test corina vation is all unconjugated, which I would not think would be hepatic in origin. We will check a julian l hepatitis panel, however, and follow liver function tests. I believe this finding on ultrasound charline preston just be nonspecific. 4. Code status: Full. 5. Admission status: We will admit to Observation. Clinical improvement will determine what treatm ent is needed. 6. Deep venous thrombosis prophylaxis. She is low risk. We will hold off on pharmacologic prophyla xis at this time. /[id number]/MODL
[2016-12-30] MEDS: KETOROLAC 30 MG/1 ML SDV IVP PRN (20:59)
[2016-12-30] MEDS: NS 1,000 ML IV SCH (20:59)
--- NOTE | 2016-12-31 01:07 | GCON ---
[f rep st] CONSULTATION SCHOOL CUSTODIAN CONSULT NOTE DATE OF CONSULTATION: 12/30/2016 SERVICE: Gynecology. HISTORY: The patient is a 36-year-old para 1 white female, who was admitted to the hospitalist service for persistent low abdominal pain with recent nausea and vomiting and upper abdominal pain. The patient has been seen in the emergency room now for the 3rd time and it was determined to be admitted for further observation. The patient had onset of sharp, lower midline pelvic pain acutely, beginning in the evening on 12/27. This was also extending up the right abdominal area. The pain lasted approximately 5 hours and then resolved. The patient had no pain throughout 12/28 until late in the day. The pain returned and was intense through the night and the patient presented to the emergency room early on 12/29. The pain was similar but significantly more intense than previous dysmenorrhea and mittelschmerz that the patient has had in the past. This also coincides with the most recent menstrual period which started on 12/25. After the patient was seen in the emergency room and given narcotics, she was discharged home, but proceeded to have significant nausea and vomiting throughout the day on 12/29 and was seen later in the emergency room with pain returning. Again was given narcotics and Toradol and hydrated with IV fluids. She was discharged home. However, reports continued nausea and vomiting throughout the day on 12/30. The patient reports the pain is lessening in her pelvis. However, on 12/30 was having more mid upper abdominal pain. The patient was not experiencing any diarrhea. Her vaginal bleeding this week has been a bit more than the typical menses with her Mirena IUD. There was heavier brownish flow on 12/26 but since then flow has been tapering and only spotting. Upon evaluation in the emergency room this afternoon, the patient was given Dilaudid and had improvement of pain, and the nausea was lessened with Phenergan IV. PAST MEDICAL HISTORY: Negative. The patient denies GI disorders and no recent exposures to viral illnesses. The patient has no cardiac or respiratory problems. PAST SURGICAL HISTORY: section 6 years ago. PAST OBSTETRIC HISTORY: Term del with C/S. PAST SCHOOL CUSTODIAN HISTORY: The patient in the past had [id number] dysmenorrhea and mittelschmerz. She had placement of a Mirena IUD 2 years ago in hopes of improving the pain. She did have a marked reduction in her symptoms until approximately 2-3 months ago when the discomfort started returning at midcycle and with the menstrual flow. Currently does not have bleeding every month and usual menses are only spotting. The patient is receiving SCHOOL CUSTODIAN care from Dr. Alexandra Bajwa, who felt the patient potentially had endometriosis with her previous history of pain, although the patient has never had any specific evaluation with laparoscopy. SOCIAL HISTORY: Patient is , lives with her and son. Is a nonsmoker. No alcohol or drug use. The patient is in a monogamous relationship. No history of sexually transmitted infections. LAB/RADIOLOGY: The patient has had multiple studies over the last 2 days including a CAT scan that was essentially negative for any pelvic pathology. There was no definitive view of the appendix, however, there was no evidence that would suggest an appendicitis. Pelvic ultrasound revealed a normal uterus 8 x 5 x 4 cm with an endometrial thickness 0.6 cm. The IUD was felt to be in position. Bilaterally the ovaries appeared normal with normal vascular flow. There was trace pelvic fluid. Lab studies revealed slightly elevated WBCs at 11.5, otherwise negative with normal liver functions and only minimally elevated bilirubin with normal lipase. PHYSICAL EXAMINATION: GENERAL: The patient is a well-developed, well- nourished white female in minimal discomfort at the time of my consultation at approximately 8:30 p.m. VITAL SIGNS: Normal and the patient is afebrile. See nursing documentation for full details. The exam was limited to abdominal exam with mild epigastric and upper abdominal soreness. Minimal lower quadrant soreness. No symphysis pubis pain. Pelvic exam was not performed as it was not felt this would add definition to the patient's problem. REVIEW OF SYSTEMS: 10-point Review of Systems performed with pertinent positives and negatives noted above. The patient has no symptoms of dysuria, urgency, or hesitation with voiding. The patient has no vaginal discharge other than the spotting menstrual flow at this point. She has not had symptoms of vaginal itching or burning or odor. ASSESSMENT: Right lower quadrant pain diminishing today. Nausea and vomiting after narcotics in the emergency room. Dysmenorrhea and mittelschmerz historically. With reviewing the patient's symptoms, it appears that her current discomfort is consistent with dysmenorrhea that definitely seems more exaggerated than typical which coincides with increased flow this week. I feel the patient's upper abdominal pain now sounds most consistent with abdominal wall soreness from persistent nausea and vomiting yesterday and today. There is a low possibility the patient has a concurrent gastrointestinal virus causing the symptoms in addition to her dysmenorrhea. PLAN: I recommend the patient having Toradol through the night and trying to minimize narcotic use. The hospitalist has ordered additional labs for in the morning. If the patient's pain has improved, then I feel there are options for her to potentially mitigate dysmenorrhea in the future. She has the option of Depo-Provera, resuming Nuvaring that she used in the past for conservative management or wait and see what further cycles present. The patient will follow up with Dr. Bajwa for continued management and to proceed with a laparoscopy to evaluate for endometriosis if necessary. Dr. Ring will follow up with the patient tomorrow. /[id number]/MODL MTDD
[2016-12-31] MEDS: KETOROLAC 30 MG/1 ML SDV IVP PRN ×2 (03:22→11:02)
[2016-12-31 05:47] LABS: % IMMATURE GRANULYOCYTES 0.4 % (0.0-1.1); ABSOLUTE IMMATURE GRANULOCYTES 0.03 10^3/uL (0.00-0.10); ADD DIFF? NO; ADD MORPH? NO; ADD SCAN? NO; ATYPICAL LYMPHOCYTE FLAG 0 (0-99); FRAGMENT RBC FLAG 10 (0-99); HEMATOCRIT 34.4 % (38.0-47.0); HEMOGLOBIN 12.1 g/dL (12.6-16.3); LEFT SHIFT FLG 0 (0-99); LIPEMIA HEMOLYSIS FLAG 90 (0-99); MEAN CELL HEMOGLOBIN CONCENTR. 35.2 g/dL (32.4-36.7); MEAN PLATELET VOLUME 9.7 fL (8.7-11.7); PLATELET CLUMPS FLAG 0 (0-99); PLATELET COUNT 199 10^3/uL (150-400); RED BLOOD CELL COUNT 3.78 10^6/uL (4.18-5.33); RED CELL DISTRIBUTION WIDTH 12.2 % (11.5-15.2)
[2016-12-31] MEDS: NS 1,000 ML IV SCH (06:06)
[2016-12-31 06:07] LABS: ALANINE AMINOTRANSFERASE 26 IU/L (9-52); ALBUMIN 2.9 g/dL (3.5-5.0); ALKALINE PHOSPHATASE 41 IU/L (38-126); ANION GAP 7 mEq/L (8-16); ASPARTATE AMINOTRANSFERASE 15 IU/L (14-46); BILIRUBIN-CONJUGATED 0.2 mg/dL (0.0-0.5); BILIRUBIN-UNCONJUGATED 1.8 mg/dL (0.0-1.1); CALCIUM 8.6 mg/dL (8.5-10.4); CARBON DIOXIDE 21 mEq/l (22-31); CHLORIDE 108 mEq/L (97-110); CREATININE 0.8 mg/dL (0.6-1.0); GLOMERULAR FILTRATION RATE > 60; GLUCOSE 81 mg/dL (70-100); SODIUM 136 mEq/L (134-144); TOTAL PROTEIN 5.3 g/dL (6.3-8.2)
[2016-12-31 08:37] VITALS: BP 109/65; PULSE 71; RESP 12; TEMP 97.9; O2SAT 96
--- NOTE | 2016-12-31 08:43 | HOSPPROG ---
Hospitalist Progress Note Assessment/Plan: Patient is a 36 y/o female who presented to the ER with abdominal pain. Today is my 1st encounter with the patient. Chart reviewed. * abdominal pain, suprapubic pain It was noted on her ultrasound that she had some free fluid concerning for ruptured ovarian cyst versus endometriosis Appreciate Dr. Guerra seeing the patient. Recommendation is for anti-inflammatories Likely etiology of her pain is dysmenorrhea She will follow up with Dr. Bajwa and proceed with a laparoscopy to evaluate for endometriosis * nausea and vomiting Resolved * increased liver function test/increased bilirubin Viral hepatitis labs pending * plan. Dr. Ring to see the patient today. Will plan on discharging she can eat and drink Subjective: Josselyn is feeling better today/ eating and drinking. Objective: Vital Signs Temp Pulse Resp BP Pulse Ox 36.6 C 71 12 109/65 96 12/31/16 08:00 12/31/16 08:00 12/31/16 08:00 12/31/16 08:00 12/31/16 08:00 Laboratory Results 12/31/16 05:11 12/31/16 05:11 12/30/16 12/31/16 01/01/17 05:59 05:59 05:59 Intake Total 1132 Balance 1132 - Physical Exam Constitutional: no apparent distress, appears nourished, not in pain Eyes: PERRL Ears, Nose, Mouth, Throat: hearing normal Cardiovascular: regular rate and rhythym Respiratory: no respiratory distress Gastrointestinal: normoactive bowel sounds, soft, non-tender abdomen Skin: warm, normal color Musculoskeletal: full muscle strength Neurologic: AAOx3 Psychiatric: interacting appropriately, not anxious ICD10 Worksheet Patient Problems: Problems Problem Status Onset Abdominal pain Acute Vomiting Acute Dehydration Acute
[2016-12-31 09:23] LABS: COLOR YELLOW; LEUKOCYTE ESTERASE,URINE NEGATIVE (NEGATIVE); NITRITE,URINE NEGATIVE (NEGATIVE)
[2016-12-31 09:32] LABS: BACTERIA TRACE /hpf (NONE SEEN); MUCUS 1+ /lpf (NONE-1+)
--- NOTE | 2016-12-31 11:15 | SOAPPROG ---
SOAP Progress Note Assessment/Plan: Assessment: abdominal/pelvic pain - resolved Plan: follow up with [facility] or [facility] pelvic ultrasound as outpatient discharge per admitting physician 12/31/16 11:12 Subjective: patient is doing much better. had several episodes of vomiting last night. not sure if vomiting secondary to pain or if pain was gi related. tolerating diet. voiding without difficulty. ready to go home. hydrating well. Objective: Vital Signs Temp Pulse Resp BP Pulse Ox 36.6 C 71 12 109/65 96 12/31/16 08:00 12/31/16 08:00 12/31/16 08:00 12/31/16 08:00 12/31/16 08:00 Laboratory Results 12/31/16 05:11 12/31/16 05:11 12/30/16 12/31/16 01/01/17 05:59 05:59 05:59 Intake Total 1132 Balance 1132 Physical Exam - Physical Exam General Appearance: WD/WN, alert, no apparent distress Neck: non-tender, full range of motion, supple Respiratory: chest non-tender, lungs clear, normal breath sounds Cardiac/Chest: normal peripheral pulses, regular rate, rhythm, edema Abdomen: normal bowel sounds, non-tender, soft Pelvic Exam: deferred Rectal: deferred Skin: normal color, warm/dry Lymphatic: no adenopathy Extremities: normal range of motion, non-tender, normal inspection, normal capillary refill Neuro/Psych: no motor/sensory deficits, alert, normal mood/affect, oriented x 3 ICD10 Worksheet Patient Problems: Problems Problem Status Onset Abdominal pain Acute Vomiting Acute Dehydration Acute
--- NOTE | 2016-12-31 15:14 | ASDISCHSUM ---
Discharge Information Plan Status:Home with No Needs Medically Cleared to Leave:12/31/2016 Discharge Date:12/31/2016 01:14 PM CM D/C Disposition:Home, Routine, Self-Care ADT D/C Disposition:Home, Routine, Self-Care Projected Discharge Date:12/31/2016 01:14 PM Transportation at D/C:Family Discharge Delay Reason: Follow-Up Date:12/31/2016 01:14 PM Discharge Slot: Final Diagnosis: Placement Information Patient Contact Information Contact Name:SHERINE Relationship: Address:[address] [place] Alternate Phone: State/Zip Code:[place] [address] Email: Financial Information Financial Class:[facility] Primary Plan Desc:[employer] Primary Plan Number:[id number] Secondary Plan Desc: Secondary Plan Number: Assessment Information [facility] CM Progress Note CM Note CM Note Notes: Pt admitted with abdominal pain, vomiting. She is discharging home today with no CM needs and will f/u outpt with [facility]. Date Signed: 12/31/2016 03:13 PM Electronically Signed By:RANDALL Nayak Intervention Information
--- NOTE | 2016-12-31 15:25 | GDS ---
[f rep st] DISCHARGE SUMMARY DISCHARGE DIAGNOSES: 1. Abdominal pain, suprapubic pain. 2. Nausea and vomiting. 3. Increased liver function tests, noted increased bilirubin. CONSULTATIONS: Dr. Leah Guerra. HISTORY: Briefly, the patient is a 36-year-old female, who presented the ER with abdominal pain. Sh mary had an ultrasound that showed some free fluid concerning for ruptured ovarian cyst versus endometri osis. Her pain is markedly improved. She will be discharged today, and further followup with [facility] or Dr. Alexandra Bajwa. HOSPITAL COURSE: 1. Abdominal pain, notably in the suprapubic area. This is much improved. The etiology of her pain is likely related to dysmenorrhea. She is feeling much improved. Further follow up with her PCP. 2. Nausea and vomiting, resolved. 3. Increased liver function with increased bilirubin. Her viral hepatitis lab is pending, recommend ing followup with this. Her bilirubin has been elevated in the past, recommending for further evalua tion by her PCP. DISCHARGE CONDITION: Stable. Blood pressure is 109/65, O2 saturation room air 96%, respiratory rate is 12, pulse 71, temperature is 36.6 Celsius. MEDICATIONS AT DISCHARGE: Please see the EMR. DISCHARGE INSTRUCTIONS: 1. Follow up with her hepatitis panel. 2. Follow up with her primary care provider to evaluate her bilirubin. 3. Stay well hydrated. /[id number]/MODL
== END 2016-12-31 13:14 | disposition home or self-care (01) ==
LOC: F3E 17:40
PROVIDERS: ADMIT Internal Medicine; ATTEND Internal Medicine
DX: R10.30 Lower abdominal pain, unspecified (principal); R11.2 Nausea with vomiting, unspecified; R94.5 Abnormal results of liver function studies; N94.6 Dysmenorrhea, unspecified; N94.0 Mittelschmerz
CPT/HCPCS: 76705; G0378; G0472; J1170; J1885; J2550

== ENCOUNTER → 2017-01-16 | Outpatient (CLI) | payer OTHER | LOC: BMCIMAGING 12:55 | PROVIDERS: ATTEND Podiatrist Foot & Ankle Surgery | DX: S92.331D Displaced fracture of third metatarsal bone, right foot, subsequent encounter for fracture with routine healing (principal) ==